=== PATIENT | female | born 1985 | race African-American/Black ===

== ENCOUNTER 2016-10-08 10:40 | Observation (INO) | payer MEDICAID | END 2016-10-08 12:45 | disposition home or self-care (01) | DRG 566 | LOC: LDRP 10:40 | PROVIDERS: ADMIT Specialist; ATTEND Specialist | DX: O40.3XX0 Polyhydramnios, third trimester, not applicable or unspecified (principal); O62.9 Abnormality of forces of labor, unspecified; Z3A.33 33 weeks gestation of pregnancy | CPT/HCPCS: 59025; 76818; 81002; G0378 ==

== ENCOUNTER 2016-10-15 10:25 | Observation (INO) | payer MEDICAID ==
[~2016-10-15] VITALS: Ht 162.6 cm; Wt 81.2 kg
[2016-10-15] MEDS ORDERED: BETAMETHASONE ACET (6MG/ML) 5ML VIAL IM SCH (10:58)
[2016-10-15] MEDS ORDERED: LACTATED RINGER'S 1,000 ML IV ONE (11:41)
== END 2016-10-15 13:40 | disposition home or self-care (01) | DRG 566 ==
LOC: LDRP 10:25
PROVIDERS: ADMIT Specialist; ATTEND Specialist
DX: O62.9 Abnormality of forces of labor, unspecified (principal); O26.893 Other specified pregnancy related conditions, third trimester; R10.2 Pelvic and perineal pain; M79.604 Pain in right leg; Z3A.34 34 weeks gestation of pregnancy
CPT/HCPCS: 59025; 76818; 81002; 96360; 96372; G0378; J0702; 96361

== ENCOUNTER 2016-10-16 11:45 | Observation (INO) | payer MEDICAID ==
[2016-10-17] MEDS ORDERED: BETAMETHASONE ACET (6MG/ML) 5ML VIAL IM ONE (10:00)
== END 2016-10-16 13:15 | disposition home or self-care (01) | DRG 563 ==
LOC: LDRP 11:45
PROVIDERS: ADMIT Specialist; ATTEND Specialist
DX: O60.00 Preterm labor without delivery, unspecified trimester
CPT/HCPCS: 59025 ×2; 81002 ×2; 96372 ×2; G0378 ×2

== ENCOUNTER 2016-10-21 09:40 | Observation (INO) | payer MEDICAID | END 2016-10-21 11:25 | disposition home or self-care (01) | DRG 566 | LOC: LDRP 09:40 | PROVIDERS: ADMIT Specialist; ATTEND Specialist | DX: O40.3XX0 Polyhydramnios, third trimester, not applicable or unspecified (principal); Z3A.34 34 weeks gestation of pregnancy | CPT/HCPCS: 59025; 76818; 81002; G0378 ==

== ENCOUNTER 2016-10-23 09:20 | Observation (INO) | payer MEDICAID | END 2016-10-23 11:00 | disposition home or self-care (01) | DRG 566 | LOC: LDRP 09:20 | PROVIDERS: ADMIT Obstetrics & Gynecology; ATTEND Obstetrics & Gynecology | DX: O40.3XX0 Polyhydramnios, third trimester, not applicable or unspecified (principal); Z3A.34 34 weeks gestation of pregnancy | CPT/HCPCS: 59025; 76817; 76818; 81002; G0378; 96361; 96374; 96375 ==

== ENCOUNTER 2016-10-27 19:17 | Observation (INO) | payer MEDICAID | END 2016-10-27 21:23 | disposition home or self-care (01) | DRG 955 | LOC: LDRP 19:17 | PROVIDERS: ADMIT Specialist; ATTEND Specialist | DX: O40.9XX0 Polyhydramnios, unspecified trimester, not applicable or unspecified (principal); Z3A.00 Weeks of gestation of pregnancy not specified | CPT/HCPCS: 59025; 76818; 81002; G0378 ==

== ENCOUNTER 2016-10-30 10:00 | Observation (INO) | payer MEDICAID ==
[2016-10-30 10:41] LABS: Urine Bilirubin Negative (Negative); Urine Color Yellow (Yellow); Urine Glucose Normal (Normal); Urine Ketone Negative (Negative); Urine Nitrite Negative (Negative); Urine RBC 1 /hpf (0 - 4); Urine Squamous Epithelial Cell FEW /hpf (<5); Urine Urobilinogen Normal (Negative)
[2016-10-30 10:43] LABS: Urine Blood 1+ /uL (Negative)
== END 2016-10-30 11:20 | disposition home or self-care (01) | DRG 566 ==
LOC: LDRP 10:00
PROVIDERS: ADMIT Specialist; ATTEND Specialist
DX: O40.3XX0 Polyhydramnios, third trimester, not applicable or unspecified (principal); Z3A.35 35 weeks gestation of pregnancy
CPT/HCPCS: 59025; 76818; 80307; 81001; 81002; G0378

== ENCOUNTER 2016-11-02 09:00 | Observation (INO) | payer MEDICAID ==
[2016-11-02] MEDS ORDERED: PREN-153 OR (09:38)
[2016-11-02] MEDS ORDERED: NIF10C GT (09:38)
== END 2016-11-02 10:45 | disposition home or self-care (01) | DRG 566 ==
LOC: LDRP 09:00
PROVIDERS: ADMIT Obstetrics & Gynecology; ATTEND Obstetrics & Gynecology
DX: O40.3XX0 Polyhydramnios, third trimester, not applicable or unspecified (principal); O60.03 Preterm labor without delivery, third trimester; Z3A.35 35 weeks gestation of pregnancy
CPT/HCPCS: 59025; 76818; 81002; G0378

== ENCOUNTER 2016-11-06 14:10 | Observation (INO) | payer MEDICAID ==
[~2016-11-06 14:10] MED LIST: NIF10C GT; PREN-153 OR
== END 2016-11-06 15:45 | disposition home or self-care (01) | DRG 566 ==
LOC: LDRP 14:10
PROVIDERS: ADMIT Specialist; ATTEND Specialist
DX: O62.9 Abnormality of forces of labor, unspecified (principal); Z3A.36 36 weeks gestation of pregnancy
CPT/HCPCS: 59025; 76818; 81002; G0378

== ENCOUNTER 2016-11-11 18:59 | Observation (INO) | payer MEDICAID ==
[2016-11-11 20:04] LABS: Urine Bilirubin Negative (Negative); Urine Ca Oxalate Crystal MOD (None Seen); Urine Color Yellow (Yellow); Urine Glucose Normal (Normal); Urine Ketone Negative (Negative); Urine Mucus FEW (None Seen); Urine Nitrite Negative (Negative); Urine RBC 8 /hpf (0 - 4); Urine Squamous Epithelial Cell FEW /hpf (<5)
[2016-11-11 20:05] LABS: Urine Blood 1+ /uL (Negative)
== END 2016-11-11 20:49 | disposition home or self-care (01) | DRG 566 ==
LOC: LDRP 18:59
PROVIDERS: ADMIT Specialist; ATTEND Specialist
DX: O40.3XX0 Polyhydramnios, third trimester, not applicable or unspecified (principal); Z3A.37 37 weeks gestation of pregnancy
CPT/HCPCS: 59025; 76818; 81001; 81002; G0378

== ENCOUNTER 2016-11-14 10:10 | Observation (INO) | payer MEDICAID ==
[~2016-11-14] VITALS: Ht 172.7 cm; Wt 86.6 kg
[2016-11-14] MEDS ORDERED: TERBUTALINE SULFATE 1 MG/ML 1ML VIAL SC PRN (11:15)
[2016-11-14] MEDS ORDERED: LACTATED RINGER'S 1,000 ML IV ONE (11:15)
[2016-11-14] MEDS ORDERED: NIFEdipine 10 MG CAP PO ONE (15:15)
== END 2016-11-14 18:00 | disposition home or self-care (01) | DRG 566 ==
LOC: LDRP 10:10
PROVIDERS: ADMIT Specialist; ATTEND Specialist
DX: O21.2 Late vomiting of pregnancy (principal); O36.8130 Decreased fetal movements, third trimester, not applicable or unspecified; Z3A.37 37 weeks gestation of pregnancy
CPT/HCPCS: 59025; 76818; 81002; 96360; G0378; 96361; 96366

== ENCOUNTER 2016-11-18 15:05 | Observation (INO) | payer MEDICAID | END 2016-11-18 16:40 | disposition home or self-care (01) | DRG 566 | LOC: LDRP 15:05 | PROVIDERS: ADMIT Specialist; ATTEND Specialist | DX: O40.3XX0 Polyhydramnios, third trimester, not applicable or unspecified (principal); Z3A.38 38 weeks gestation of pregnancy | CPT/HCPCS: 59025; 76805; 76818; 81002; G0378 ==

== ENCOUNTER 2016-11-20 08:15 | Observation (INO) | payer MEDICAID | END 2016-11-20 10:00 | disposition home or self-care (01) | DRG 566 | LOC: LDRP 08:15 | PROVIDERS: ADMIT Obstetrics & Gynecology; ATTEND Obstetrics & Gynecology | DX: O40.3XX0 Polyhydramnios, third trimester, not applicable or unspecified (principal); O62.9 Abnormality of forces of labor, unspecified; Z3A.38 38 weeks gestation of pregnancy | CPT/HCPCS: 59025; 76818; 81002; G0378 ==

== ENCOUNTER 2023-08-06 07:21 | Emergency (ER) | payer MEDICAID ==
[~2023-08-06] VITALS: Ht 162.6 cm; Wt 58.9 kg
[~2023-08-06 07:21] MED LIST changes: -PREN-153 OR; +PREN1TAB71 OR
[2023-08-06 08:14] LABS: Basophils # (auto) 0 10 ^3/uL (0-0.2); Basophils % (auto) 0.2 % (0.0-2.0); Eosinophils # (auto) 0 10 ^3/uL (0-0.8); Eosinophils % (auto) 0.4 % (0.0-7.0); Hematocrit 34.1 % (36.0-46.0); Hemoglobin 11.4 g/dL (12.2-16.2); Lymphocytes # (auto) 1.8 10 ^3/uL (0.4-5.4); Lymphocytes % (auto) 30.7 % (10.0-50.0); Mean Corpuscular Hemoglobin 32.4 pg (28.0-32.0); Mean Corpuscular Hgb Conc. 33.3 g/dL (32.0-36.0); Mean Corpuscular Volume 97.4 fL (80.0-100.0); Monocytes # (auto) 0.8 10 ^3/uL (0-1.3); Monocytes % (auto) 12.6 % (0.0-12.0); Neutrophils # (auto) 3.3 10 ^3/uL (1.6-8.6); Neutrophils % (auto) 56.1 % (37.0-80.0); Nucleated Red Blood Cells % 0.1 %; Red Blood Cells 3.51 10^6/uL (4.0-5.20); Red Cell Distribution Width 14.3 % (11.8-14.3); White Blood Cell 5.9 10^3/uL (4.4-10.8)
[2023-08-06 08:25] LABS: Urine Bacteria FEW /hpf (None Seen); Urine Blood 3+ /uL (Negative); Urine Clarity Clear (Clear); Urine Color Yellow (Yellow); Urine Mucus FEW (None Seen); Urine Protein, UAD TRACE (Negative); Urine Specific Gravity 1.021 (1.001-1.035); Urine Urobilinogen Normal (Negative); Urine WBC 3 /hpf (0 - 5); Urine pH 6.5 (5.0-8.0)
[2023-08-06 08:44] LABS: Albumin 4.1 g/dL (3.2-4.8); Alkaline Phosphatase 49 U/L (46-116); Anion Gap 4 (5-15); Aspartate Aminotransferase 22 U/L (13-40); BUN/Creatinine Ratio 13.4 (10.0-20.0); Bilirubin, Total 0.6 mg/dL (0.2-1.0); Blood Urea Nitrogen 9 mg/dL (9-23); Calcium 9.3 mg/dL (8.5-10.1); Carbon Dioxide 26 mmol/L (20-30); Chloride 109 mmol/L (98-107); Glucose 84 mg/dL (74-106); Sodium 139 mmol/L (136-145)
[2023-08-06 08:45] LABS: Alanine Aminotransferase 9 U/L (7-40)
[2023-08-06] MEDS ORDERED: NITR-87 PO (10:31)
[2023-08-06 13:26] VITALS: BP 113/60; PULSE 74; RESP 17; TEMP 97.7; O2SAT 100
== END 2023-08-06 13:28 | disposition home or self-care (01) ==
LOC: ER 07:21
DX: O20.0 Threatened abortion (principal); R10.2 Pelvic and perineal pain; O23.41 Unspecified infection of urinary tract in pregnancy, first trimester; F15.90 Other stimulant use, unspecified, uncomplicated; Z3A.01 Less than 8 weeks gestation of pregnancy; Z98.890 Other specified postprocedural states; Z79.899 Other long term (current) drug therapy
CPT/HCPCS: 36415; 76801; 76817; 80053; 81001; 84702; 85025